=== PATIENT | male | born 1955 | race Caucasian/White ===

== ENCOUNTER 2018-03-26 14:16 | Observation (INO) ==
[2018-03-26 14:58] LABS: Baso % (Auto) 0.5 % (0.0-2.0); Eos % (Auto) 0.4 % (0.0-4.0); Hematocrit 46.2 % (39.0-51.0); Hemoglobin 15.5 gm/dL (13.0-17.0); Lymph # (Auto) 1.2 th/mm3 (1.0-4.8); Lymph % (Auto) 13.1 % (9.0-44.0); Mean Corpuscular HGB Conc 33.6 % (32.0-36.0); Mean Corpuscular Hemoglobin 30.7 pg (27.0-34.0); Mean Corpuscular Volume 91.4 fL (80.0-100.0); Mean Platelet Volume 9.4 fL (7.0-11.0); Mono # (Auto) 0.7 th/mm3 (0.0-0.9); Mono % (Auto) 8.3 % (0.0-8.0); Neut % (Auto) 77.7 % (16.0-70.0); Platelet Count 150 th/mm3 (150-450); Red Blood Count 5.05 mil/mm3 (4.50-5.90); Red Cell Distribution Width 13.3 % (11.6-17.2); White Blood Count 8.9 th/mm3 (4.0-11.0)
--- NOTE | 2018-03-26 15:13 | XR ---
EXAM DATE: 03/26/2018 3:09 PM EST AGE/SEX: 62 years / Male INDICATIONS: . Nausea and dizziness. CLINICAL DATA: This is the patient's initial encounter. Patient reports that signs and symptoms have been present for 1 day and indicates a pain score of 0/10. MEDICAL/SURGICAL HISTORY: Hypertension. None. COMPARISON: No prior exams available for comparison. FINDINGS: PA and lateral views of the chest demonstrate the lungs to be symmetrically aerated without evidence of mass, infiltrate or effusion. The cardiomediastinal contours are unremarkable. Osseous structures are intact. CONCLUSION: Negative examination. Electronically signed by: Ji Garduno MD 03/26/2018 3:12 PM EST
[2018-03-26 15:14] LABS: Chloride 102 meq/L (98-107); Potassium 3.7 meq/L (3.5-5.1); Sodium 138 meq/L (136-145)
[2018-03-26 15:16] LABS: Calcium 8.4 mg/dL (8.5-10.1)
[2018-03-26 15:17] LABS: Anion Gap 7 meq/L (5-15); Blood Urea Nitrogen 13 mg/dL (7-18); Carbon Dioxide 28.9 meq/L (21.0-32.0); Glucose,Random 122 mg/dL (74-106)
[2018-03-26 15:20] LABS: Glomerular Filtration Rate 85 mL/min (>89)
--- NOTE | 2018-03-26 15:37 | ED ---
HPI General Chief Complaint: Dizziness Stated Complaint: chest pain Time Seen by Provider: 03/26/18 14:25 Source: patient and family Limitations: no limitations History of Present Illness HPI Narrative: Patient is a 62-year-old male, past medical history significant for hyperlipidemia and hypertension who presents with complaint of near syncope. He states that he was at home exerting himself when he became diaphoretic, lightheaded and had a "weird" feeling in his lower chest/upper abdomen associated with nausea. He laid down to rest and after several minutes felt back to normal. He did have shortness of breath at that time. This is never happened before. He denies any chest pain, abdominal pain at this time. He denies any fever, chills. He denies any cough or congestion. No leg swelling nor mobilization. complaint: Reports lightheadedness and near syncope Onset (ago): hour(s) Timing: sudden onset Description: Reports lightheadedness and near-syncope History of similar episodes: No History of trauma: No Severity: severe Relieving factors: rest Exacerbating factors: exertion Associated symptoms: Reports diaphoresis Related Data Home Medications Medication Instructions Recorded Confirmed amlodipine 5 mg PO DAILY 03/26/18 03/26/18 lovastatin 20 mg PO DAILY 03/26/18 03/26/18 Allergies Allergy/AdvReac Type Severity Reaction Status Date / Time No Known Allergies Allergy Verified 03/26/18 14:20 Review of Systems ROS: all other systems reviewed are negative [facility] Medical History Medical History High cholesterol (Acute) Hypertension (Acute) Surgical History Surgical History No history of previous surgery (Acute) Social History Social History Substance History: No History of Abuse Second Hand Smoke Exposure: No Smoking Status: Former smoker Tobacco Type: Cigarettes How Often Do You Have a Drink Containing Alcohol: 2 to 4 times a month Recent Travel in [facility] within the Last 8 Weeks: Yes Recent Out of Country Travel within the Last 8 Weeks: No Immunization History Tetanus Immunization: Unsure Exam Narrative Exam Narrative: GENERAL: Well-appearing male in no acute distress SKIN: Focused skin assessment warm/dry. HEAD: Atraumatic. Normocephalic. EYES: Pupils equal and round. No scleral icterus. No injection or drainage. ENT: No nasal bleeding or discharge. Mucous membranes pink and moist. NECK: Trachea midline. No JVD. CARDIOVASCULAR: Regular rate and rhythm. No murmur appreciated. Intact and equal peripheral pulses. RESPIRATORY: No accessory muscle use. Clear to auscultation. Breath sounds equal bilaterally. GASTROINTESTINAL: Abdomen soft, non-tender, nondistended. Hepatic and splenic margins not palpable. MUSCULOSKELETAL: No obvious deformities. No clubbing. No cyanosis. No edema. NEUROLOGICAL: Awake and alert. No obvious cranial nerve deficits. Motor within normal limits. Normal sensation. No dysmetria nor pass pointing. Normal visual field. Normal speech. PSYCHIATRIC: Appropriate mood and affect; insight and judgment normal. Course Initial Documented Vital Signs Temperature 97.7 F 03/26/18 14:18 Pulse Rate 60 03/26/18 14:18 Respiratory Rate 18 03/26/18 14:18 Blood Pressure 165/87 H 03/26/18 14:18 Pulse Oximetry 100 03/26/18 14:18 Last Documented Vital Signs Temperature 97.7 F 03/26/18 14:18 Pulse Rate 77 03/26/18 16:35 Respiratory Rate 16 03/26/18 16:00 Blood Pressure 148/86 H 03/26/18 16:00 Pulse Oximetry 97 03/26/18 16:00 Medical Decision Making [facility] Narrative Medical decision making narrative: Patient is a 62-year-old male who presents with complaint of vague lower chest/upper abdominal pain with diaphoresis, nausea, lightheadedness while exerting himself today. This does resolve with rest. He has not had any further episodes while in the emergency department. EKG was without acute ischemic changes. Chest x-ray was unremarkable and initial troponin was also normal. He was given aspirin. He has been admitted to Dr. Mendez, hospitalist semiconductor technician, for further evaluation and management. Medical Screen Exam Complete: Yes Emergency Medical Condition: Yes Differential Diagnosis Differential Diagnosis: Differential diagnosis includes but is not limited to acute coronary syndrome, pneumonia, pneumothorax, dysrhythmia. Medical Records Medical records reviewed: Yes I reviewed the patient's medical records. Lab Data Lab results reviewed: Yes I reviewed the patient's lab results. Result diagrams: 03/26/18 14:20 03/26/18 14:20 Lab Results 03/26/18 03/26/18 Range/Units 14:20 14:20 CBC w Diff Auto diff final WBC 8.9 (4.0-11.0) th/mm3 RBC 5.05 (4.50-5.90) mil/mm3 Hgb 15.5 (13.0-17.0) gm/dL Hct 46.2 (39.0-51.0) % MCV 91.4 (80.0-100.0) fL MCH 30.7 (27.0-34.0) pg MCHC 33.6 (32.0-36.0) % RDW 13.3 (11.6-17.2) % Plt Count 150 (150-450) th/mm3 MPV 9.4 (7.0-11.0) fL Neut % (Auto) 77.7 H (16.0-70.0) % Lymph % (Auto) 13.1 (9.0-44.0) % [facility] % (Auto) 8.3 H (0.0-8.0) % Eos % (Auto) 0.4 (0.0-4.0) % Baso % (Auto) 0.5 (0.0-2.0) % Neut # (Auto) 7.0 (1.8-7.7) th/mm3 Lymph # (Auto) 1.2 (1.0-4.8) th/mm3 [facility] # (Auto) 0.7 (0.0-0.9) th/mm3 Eos # (Auto) 0.0 (0.0-0.4) th/mm3 Baso # (Auto) 0.0 (0.0-0.2) th/mm3 WBC Differential . Differential Comment . Sodium 138 (136-145) meq/L Potassium 3.7 (3.5-5.1) meq/L Chloride 102 (98-107) meq/L Carbon Dioxide 28.9 (21.0-32.0) meq/L Anion Gap 7 (5-15) meq/L BUN 13 (7-18) mg/dL Creatinine 0.91 (0.60-1.30) mg/dL Estimated GFR 85 L (>89) mL/min Random Glucose 122 H (74-106) mg/dL Calcium 8.4 L (8.5-10.1) mg/dL Troponin I Less than 0.02 L (0.02-0.05) ng/mL Imaging Data Attestation: I personally reviewed and interpreted this imaging study as follows : Radiologist's impression: Chest X-Ray 03/26/18 14:36 CONCLUSION: Negative examination. ECG Data EKG Prior to Arrival: No Attestation: I personally reviewed and interpreted this ECG as follows: (Sinus rhythm at a rate of [address] or T wave changes. There is intraventricular conduction delay.) Discharge Plan Discharge Disposition Patient Disposition: 30 Still Patient Discharge Condition Condition: Stable Discharge Details Diagnosis: Chest pain, rule out acute myocardial infarction, Near syncope Physicians Team ED Provider: Ana Paula Jett Primary Care Provider: KELLIE, Attending Provider: Paddy Mendez Discharge Interventions Interventions: ED Discharge Assessment Last Done: 03/26/18 16:22 Status ED Status: Left Department Discharge Information Discharge Date/Time: 03/26/18 16:10
--- NOTE | 2018-03-26 16:18 | P.HP ---
History of Present Illness Primary Care Physician: [facility] Chief Complaint: Near syncope History of Present Illness: This is a 62-year-old male patient with a known medical history of hyperlipidemia and hypertension who presented to the ED status post near syncopal episode. Patient states that he went shopping this afternoon, was unpacking his TV and exerting himself and he became diaphoretic and lightheaded , states that he felt a fluttering sensation in his upper chest with associated nausea. He denies ever having this type of sensation before. He denies any actual chest pain. Denies any recent illness including fever, chills, cough, headache, abdominal pain, vomiting, diarrhea or dysuria. Patient denies any loss of consciousness or hitting his head. He states that he laid down to rest after the sensation and symptoms did resolve after a while with rest. Patient does admit to having a head cold over the last week, denies any over-the- counter medications including decongestants, states he has been using honey and lemon which has relieved some of his head cold symptoms. His appetite has been good, denies any possibility of dehydration. 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 He does admit to undergoing cardiac stress test in June of this year through his PCP and an echo was also done at that time with results unremarkable per patient report. Denies any changes to his medications. Does admit to taking his medication this morning. Patient and his moved here from [place] is here half the year and stress test echocardiogram was done in [place]. Will attempt to obtain records. Denies any known family history of cardiovascular disease. He was a former smoker, quit many years ago. CBC and BMP on presentation unremarkable. Chest x-ray negative. EKGs unremarkable without any ST changes. All symptoms have improved on assessment this evening. Review of Systems All other systems reviewed negative except as stated in HPI PMFSH - History History Provided By: Patient - Medical History Medical History: Medical History (Last Reviewed 03/26/18 @ 16:14 by Temitope Ruiz) High cholesterol Hypertension - Surgical History Surgical History: Surgical History (Last Reviewed 03/26/18 @ 16:14 by Temitope Ruiz) No history of previous surgery - Family History Family History: Family History (Last Updated 03/26/18 @ 18:08 by Temitope Ruiz) Other Family history in first degree relatives is unremarkable - Social History I have reviewed the patient's Social History: Yes - Tobacco History Smoking Status: Former smoker - Alcohol History How Often Do You Have a Drink Containing Alcohol: 2 to 4 times a month - Substance Use History Substance History: No History of Abuse - Travel History Recent Travel Out of the Country Within the Last 8 Weeks: No - Immunization History Tetanus Immunization: Unsure Medications and Allergies Active Medications: Active Medications Amlodipine Besylate (Norvasc) 5 mg PO DAILY VENESSA Aspirin (Aspirin Chew) 81 mg PO DAILY VENESSA Nitroglycerin (Nitrostat Sl) 0.4 mg SL Q5M PRN PRN Reason: CHEST PAIN Pravastatin Sodium (Pravachol) 20 mg PO DAILY VENESSA Sodium Chloride (Ns Flush) 2 ml IV.FLUSH PRN PRN PRN Reason: FLUSH AFTER USING IV ACCESS Sodium Chloride (Ns Flush) 2 ml IV.FLUSH BID VENESSA Sodium Chloride (Ns Flush) 2 ml IV.FLUSH PRN PRN PRN Reason: FLUSH AFTER USING IV ACCESS Allergies Allergy/AdvReac Type Severity Reaction Status Date / Time No Known Allergies Allergy Verified 03/26/18 14:20 Home Medications Medication Instructions Recorded Confirmed Type amlodipine 5 mg PO DAILY 03/26/18 03/26/18 History lovastatin 20 mg PO DAILY 03/26/18 03/26/18 History Exam Vital signs: Vital Signs 03/26/18 14:18 03/26/18 14:30 03/26/18 14:36 Temperature 97.7 F Pulse Rate 60 90 90 Respiratory Rate 18 16 Blood Pressure 165/87 H 165/87 H Pulse Oximetry 100 94 L Intake & Output 03/25/18 03/26/18 03/26/18 18:59 06:59 18:59 Weight 97.4 kg Narrative: GENERAL: Well-developed, well-nourished patient in [facility]. SKIN: Warm and dry. No rash. HEAD: Normocephalic. Atraumatic. EYES: Pupils equal and round. No scleral icterus. No injection or drainage. ENT: No nasal bleeding or discharge. Mucous membranes pink and moist. NECK: Supple. Trachea midline. CARDIOVASCULAR: Regular rate and rhythm. S1, S2 noted. No murmur appreciated. No chest pain to palpation. RESPIRATORY: No accessory muscle use. Clear to auscultation. Breath sounds equal bilaterally. GASTROINTESTINAL: Abdomen soft, non-tender, nondistended. Normoactive bowel sounds x4. MUSCULOSKELETAL: No obvious deformities. Extremities without clubbing, cyanosis , or edema. NEUROLOGICAL: Awake and alert. No obvious cranial nerve deficits. Motor grossly within normal limits. 5/5 muscle strength in bilateral upper and lower extremities. Normal speech. PSYCHIATRIC: Appropriate mood and affect; insight and judgment normal. Results - Labs CBC & Chem 7: 03/26/18 14:20 03/26/18 14:20 Labs: Laboratory Results - last 24 hr 03/26/18 03/26/18 14:20 14:20 CBC w Diff Auto diff final WBC 8.9 RBC 5.05 Hgb 15.5 Hct 46.2 MCV 91.4 MCH 30.7 MCHC 33.6 RDW 13.3 Plt Count 150 MPV 9.4 Neut % (Auto) 77.7 H Lymph % (Auto) 13.1 [facility] % (Auto) 8.3 H Eos % (Auto) 0.4 Baso % (Auto) 0.5 Neut # (Auto) 7.0 Lymph # (Auto) 1.2 [place] # (Auto) 0.7 Eos # (Auto) 0.0 Baso # (Auto) 0.0 WBC Differential . Differential Comment . Sodium 138 Potassium 3.7 Chloride 102 Carbon Dioxide 28.9 Anion Gap 7 BUN 13 Creatinine 0.91 Estimated GFR 85 L Random Glucose 122 H Calcium 8.4 L Troponin I Less than 0.02 L - Imaging Impressions Chest X-Ray 03/26/18 14:36 CONCLUSION: Negative examination. Caprini VTE Risk Assessment Caprini VTE Risk Assessment: Moderate/High Risk (score >= 2) Caprini Risk Assessment Model: Point Value = 1 Point Value = 2 Point Value = 3 Point Value = 5 Age 41-60 Minor surgery BMI > 25 kg/m2 Swollen legs Varicose veins or History of unexplained or recurrent spontaneous Oral contraceptives or hormone replacement Sepsis (< 1 month) Serious lung disease, including pneumonia (< 1 month) Abnormal pulmonary function Acute myocardial infarction Congestive heart failure (< 1 month) History of inflammatory bowel disease Medical patient at bed rest Age 61-74 Arthroscopic surgery Major open surgery (> 45 min) Laparoscopic surgery (> 45 min) Malignancy Confined to bed (> 72 hours) Immobilizing plaster cast Central venous access Age >= 75 History of VTE Family history of VTE Factor V Leiden Prothrombin [id number] Lupus anticoagulant Anticardiolipin antibodies Elevated serum homocysteine Heparin-induced thrombocytopenia Other congenital or acquired thrombophilia Stroke (< 1 month) Elective arthroplasty Hip, pelvis, or leg fracture Acute spinal cord injury (< 1 month) Prophylaxis Regimen: Total Risk Factor Score Risk Level Prophylaxis Regimen 0-1 Low Early ambulation 2 Moderate Order ONE of the following: *Sequential Compression Device (SCD) *Heparin 5000 units SQ BID 3-4 Higher Order ONE of the following medications: *Heparin 5000 units SQ TID *Enoxaparin/Lovenox 40 mg SQ daily (WT < 150 kg, CrCl > 30 mL/min) *Enoxaparin/Lovenox 30 mg SQ daily (WT < 150 kg, CrCl > 10-29 mL/min) *Enoxaparin/Lovenox 30 mg SQ BID (WT < 150 kg, CrCl > 30 mL/min) AND/OR *Sequential Compression Device (SCD) 5 or more Highest Order ONE of the following medications: *Heparin 5000 units SQ TID (Preferred with Epidurals) *Enoxaparin/Lovenox 40 mg SQ daily (WT < 150 kg, CrCl > 30 mL/min) *Enoxaparin/Lovenox 30 mg SQ daily (WT < 150 kg, CrCl > 10-29 mL/min) *Enoxaparin/Lovenox 30 mg SQ BID (WT < 150 kg, CrCl > 30 mL/min) AND *Sequential Compression Device (SCD) Assessment and Plan - Plan This is a 62-year-old patient with a known medical history of hypertension and hyperlipidemia who presented to the ED with: Near syncopal episode at home Rule out TIA/CVA/ACS/orthostatic hypotension/dehydration -Patient complaint of diaphoretic episode, lightheadedness and fluttering sensation in chest. -All symptoms have resolved at time of assessment. -Will obtain records from recent cardiac stress test and ECHO of this year from in [place]. Follow. -Obtain head CT for possible neurological cause of symptoms, rule out TIA/CVA. -Add ultrasound of carotids. Follow. -Check orthostatic BPs. -CBC and BMP reviewed and essentially unremarkable. Will add TSH and hemoglobin a1c level. -CXR reviewed, showing no acute cardiopulmonary disease. -Aspirin given in ED. Will continue. -Nitroglycerin for pain as needed, patient denies ever having any chest pain. -Serial EKGs and serial troponins have been ordered for ruling out ACS purposes. Initial troponin flat. Continue to follow trend. -EKG reviewed showing controlled heart rate with sinus arrhythmia, no ST changes noted to indicate ischemia. -Continue to monitor closely on telemetry, monitor for any arrhythmias. -Ensure hydration, continue IVF. Encourage PO intake. -Supportive care. Hypertension, chronic. Stable. -Continue home amlodipine. -Monitor BP trends. Hyperlipidemia, chronic. Stable. -Continue home statin. DVT Prophylaxis: SCDs.
[2018-03-26 18:14] LABS: Creatine Kinase 217 U/L (39-308)
[2018-03-26] MEDS ORDERED: Sod Chloride 0.9% Inj 1,000 ML IV.CONT SCH (18:30)
[2018-03-26 20:48] LABS: Creatine Kinase 190 U/L (39-308)
--- NOTE | 2018-03-26 22:35 | CT ---
EXAM DATE: 03/26/2018 10:29 PM EST AGE/SEX: 62 years / Male INDICATIONS: Syncope. CLINICAL DATA: This is the patient's initial encounter. Patient reports that signs and symptoms have been present for 1 day and indicates a pain score of 0/10. MEDICAL/SURGICAL HISTORY: Hypercholesterolemia. Hypertension. None. RADIATION DOSE: 59.64 CTDI (mGy) COMPARISON: No prior exams available for comparison. TECHNIQUE: CT of the head without contrast. Using automated exposure control and adjustment of the mA and/or kV according to patient size, radiation dose was kept as low as reasonably achievable to ob tain optimal diagnostic quality images. DICOM format image data is available electronically for revi ew and comparison. FINDINGS: Cerebrum: The ventricles are normal for age. No evidence of midline shift, mass lesion, hemorrhage or acute infarction. No extraaxial fluid collections are seen. Posterior Fossa: The cerebellum and brainstem are intact. The 4th ventricle is midline. The cerebe llopontine angle is unremarkable. Extracranial: The visualized portion of the orbits is intact. Skull: The calvaria is intact. No evidence of skull fracture. CONCLUSION: 1. Negative CT Head non contrast. . Electronically signed by: Orlando Young MD 03/26/2018 10:34 PM EST
[2018-03-27 05:15] LABS: Baso % (Auto) 0.6 % (0.0-2.0); Eos % (Auto) 0.7 % (0.0-4.0); Hematocrit 45.6 % (39.0-51.0); Hemoglobin 15.1 gm/dL (13.0-17.0); Lymph # (Auto) 1.3 th/mm3 (1.0-4.8); Lymph % (Auto) 28.4 % (9.0-44.0); Mean Corpuscular HGB Conc 33.2 % (32.0-36.0); Mean Corpuscular Hemoglobin 30.5 pg (27.0-34.0); Mean Corpuscular Volume 92.1 fL (80.0-100.0); Mono # (Auto) 0.7 th/mm3 (0.0-0.9); Neut # (Auto) 2.5 th/mm3 (1.8-7.7); Neut % (Auto) 55.3 % (16.0-70.0); Platelet Count 160 th/mm3 (150-450); Red Blood Count 4.95 mil/mm3 (4.50-5.90); Red Cell Distribution Width 13.1 % (11.6-17.2); White Blood Count 4.5 th/mm3 (4.0-11.0)
[2018-03-27 05:20] LABS: Chloride 104 meq/L (98-107); Potassium 3.9 meq/L (3.5-5.1); Sodium 139 meq/L (136-145)
[2018-03-27 05:24] LABS: Albumin 3.8 g/dL (3.4-5.0); Anion Gap 8 meq/L (5-15); Calcium 8.6 mg/dL (8.5-10.1); Carbon Dioxide 27.1 meq/L (21.0-32.0); Glucose,Random 92 mg/dL (74-106)
[2018-03-27 05:25] LABS: Blood Urea Nitrogen 11 mg/dL (7-18)
[2018-03-27 05:27] LABS: Alanine Aminotransferase 47 U/L (12-78); Aspartate Aminotransferase 19 U/L (15-37)
[2018-03-27 05:28] LABS: Glomerular Filtration Rate 87 mL/min (>89)
[2018-03-27 05:29] LABS: Total Protein 7.4 g/dL (6.4-8.2)
[2018-03-27 05:30] LABS: Alkaline Phosphatase 55 U/L (45-117)
[2018-03-27] MEDS: amLODIPine 5 MG Tablet PO SCH ×2 (07:33→08:10)
[2018-03-27 08:07] VITALS: BP 131/80; RESP 16; TEMP 97.8; O2SAT 96
[2018-03-27 08:16] VITALS: PULSE 68
--- NOTE | 2018-03-27 08:25 | US ---
EXAM DATE: 03/27/2018 8:20 AM EST AGE/SEX: 62 years / Male INDICATIONS: Syncope. CLINICAL DATA: This is the patient's initial encounter. Patient reports that signs and symptoms have been present for 1 day and indicates a pain score of 0/10. MEDICAL/SURGICAL HISTORY: Hypercholesterolemia. Hypertension. None. COMPARISON: No prior exams available for comparison. VELOCITY PARAMETERS: ICA/CCA Ratio: Right 0.8 , Left 0.9 ICA: Right 75 cm/sec, Left 87 cm/sec CCA: Right 91 cm/sec, Left 95 cm/sec ECA: Right 81 cm/sec, Left 100 cm/sec Vertebral: Right 45 cm/sec antegrade, Left 54 cm/sec antegrade FINDINGS: Right Carotid: Mild arteriosclerotic plaque is visualized.The waveforms are within normal limits. Left Carotid: Mild arteriosclerotic plaque is visualized. The waveforms are within normal limits. Other: None. CONCLUSION: 1. Right Internal Carotid Artery: Minimal atherosclerotic plaquing. No hemodynamically significant l esion identified. 2. Left Internal Carotid Artery: Minimal atherosclerotic plaquing. No hemodynamically significant le lalito identified. Electronically signed by: Ji Garduno MD 03/27/2018 8:24 AM EST
--- NOTE | 2018-03-27 09:41 | P.PNIM ---
Subjective Interval history: Follow up near syncope at home. Patient seen and examined, lying in bed comfortably in [facility]. No acute events overnight. Doing well. All labs negative. VSS. Awaiting records from MD in [facility]. Patient states that ECHO and stress test this year was normal. All symptoms have resolved. Will likely send home this am if unable to obtain records and have him follow up with his PCP, returns home to [facility] on Sunday. is at bedside as well and updated. Physical Exam Vital signs: Vital Signs 03/26/18 14:18 03/26/18 14:30 03/26/18 14:36 Temperature 97.7 F Pulse Rate 60 90 90 Respiratory Rate 18 16 Blood Pressure 165/87 H 165/87 H Pulse Oximetry 100 94 L 03/26/18 15:30 03/26/18 16:00 03/26/18 16:35 Temperature Pulse Rate 74 70 77 Respiratory Rate 16 16 Blood Pressure 146/87 H 148/86 H Pulse Oximetry 97 97 03/26/18 19:22 03/26/18 20:00 03/27/18 00:00 Temperature 97.4 F L 97.5 F L Pulse Rate 76 69 66 Respiratory Rate 17 20 Blood Pressure 121/73 121/74 Pulse Oximetry 98 98 03/27/18 00:31 03/27/18 00:35 03/27/18 02:10 Temperature Pulse Rate 72 Respiratory Rate 18 18 Blood Pressure Pulse Oximetry 03/27/18 04:00 03/27/18 04:54 03/27/18 08:00 Temperature 98.5 F 97.8 F Pulse Rate 78 76 68 Respiratory Rate 20 16 Blood Pressure 128/81 131/80 Pulse Oximetry 97 96 Intake & Output 03/26/18 03/27/18 03/27/18 18:59 06:59 18:59 Intake Total 480 / 480 0 / 0 Balance 480 / 480 0 / 0 Weight 94.7 kg 94.8 kg Intake: Oral 480 / 480 0 / 0 Other: # Voids 2 3 Date of Last Bowel Movement 03/26/18 03/26/18 # Bowel Movements 0 1 Weight On Admission 94.7 kg Narrative: GENERAL: Well-developed, well-nourished patient in [facility]. SKIN: Warm and dry. No rash. HEAD: Normocephalic. Atraumatic. EYES: Pupils equal and round. No scleral icterus. No injection or drainage. ENT: No nasal bleeding or discharge. Mucous membranes pink and moist. NECK: Supple. Trachea midline. CARDIOVASCULAR: Regular rate and rhythm. S1, S2 noted. No murmur appreciated. No chest pain to palpation. RESPIRATORY: No accessory muscle use. Clear to auscultation. Breath sounds equal bilaterally. GASTROINTESTINAL: Abdomen soft, non-tender, nondistended. Normoactive bowel sounds x4. MUSCULOSKELETAL: No obvious deformities. Extremities without clubbing, cyanosis , or edema. NEUROLOGICAL: Awake and alert. No obvious cranial nerve deficits. Motor grossly within normal limits. 5/5 muscle strength in bilateral upper and lower extremities. Normal speech. PSYCHIATRIC: Appropriate mood and affect; insight and judgment normal. Results - Labs CBC & Chem 7: 03/27/18 04:40 03/27/18 04:40 Laboratory Results - last 24 hr 03/26/18 03/26/18 03/26/18 14:20 14:20 17:23 CBC w Diff Auto diff final WBC 8.9 RBC 5.05 Hgb 15.5 Hct 46.2 MCV 91.4 MCH 30.7 MCHC 33.6 RDW 13.3 Plt Count 150 MPV 9.4 Neut % (Auto) 77.7 H Lymph % (Auto) 13.1 [place] % (Auto) 8.3 H Eos % (Auto) 0.4 Baso % (Auto) 0.5 Neut # (Auto) 7.0 Lymph # (Auto) 1.2 [place] # (Auto) 0.7 Eos # (Auto) 0.0 Baso # (Auto) 0.0 WBC Differential . Differential Comment . Sodium 138 Potassium 3.7 Chloride 102 Carbon Dioxide 28.9 Anion Gap 7 BUN 13 Creatinine 0.91 Estimated GFR 85 L Random Glucose 122 H Calcium 8.4 L Total Bilirubin AST ALT Alkaline Phosphatase Total Creatine Kinase 217 Troponin I Less than 0.02 L Less than 0.02 L Total Protein Albumin TSH 03/26/18 03/26/18 03/27/18 17:23 20:26 04:40 CBC w Diff Auto diff final WBC 4.5 RBC 4.95 Hgb 15.1 Hct 45.6 MCV 92.1 MCH 30.5 MCHC 33.2 RDW 13.1 Plt Count 160 MPV 9.0 Neut % (Auto) 55.3 Lymph % (Auto) 28.4 [place] % (Auto) 15.0 H Eos % (Auto) 0.7 Baso % (Auto) 0.6 Neut # (Auto) 2.5 Lymph # (Auto) 1.3 [place] # (Auto) 0.7 Eos # (Auto) 0.0 Baso # (Auto) 0.0 WBC Differential . Differential Comment . Sodium Potassium Chloride Carbon Dioxide Anion Gap BUN Creatinine Estimated GFR Random Glucose Calcium Total Bilirubin AST ALT Alkaline Phosphatase Total Creatine Kinase 190 Troponin I Less than 0.02 L Total Protein Albumin TSH 0.975 03/27/18 04:40 CBC w Diff WBC RBC Hgb Hct MCV MCH MCHC RDW Plt Count MPV Neut % (Auto) Lymph % (Auto) [place] % (Auto) Eos % (Auto) Baso % (Auto) Neut # (Auto) Lymph # (Auto) [place] # (Auto) Eos # (Auto) Baso # (Auto) WBC Differential Differential Comment Sodium 139 Potassium 3.9 Chloride 104 Carbon Dioxide 27.1 Anion Gap 8 BUN 11 Creatinine 0.89 Estimated GFR 87 L Random Glucose 92 Calcium 8.6 Total Bilirubin 0.8 AST 19 ALT 47 Alkaline Phosphatase 55 Total Creatine Kinase Troponin I Total Protein 7.4 Albumin 3.8 TSH - Imaging Impressions Head CT 03/26/18 00:00 CONCLUSION: 1. Negative CT Head non contrast. . Chest X-Ray 03/26/18 14:36 CONCLUSION: Negative examination. Carotid Doppler Study 03/27/18 00:00 CONCLUSION: 1. Right Internal Carotid Artery: Minimal atherosclerotic plaquing. No hemodynamically significant lesion identified. 2. Left Internal Carotid Artery: Minimal atherosclerotic plaquing. No hemodynamically significant lesion identified. Assessment and Plan - Plan This is a 62-year-old patient with a known medical history of hypertension and hyperlipidemia who presented to the ED with: Near syncopal episode at home Rule out TIA/CVA/ACS/orthostatic hypotension/dehydration -Patient complaint of diaphoretic episode, lightheadedness and fluttering sensation in chest. -All symptoms have resolved at time of assessment. -Will obtain records from recent cardiac stress test and ECHO of this year from in [place]. Still waiting on records. -Head CT negative. -US carotids negative. -Orthostatic BPs negative. -CBC and BMP reviewed and essentially unremarkable. TSH negative. -CXR reviewed, showing no acute cardiopulmonary disease. -Aspirin given in ED. Will continue. -Nitroglycerin for pain as needed, patient denies ever having any chest pain. -Serial EKGs and serial troponins have been ordered for ruling out ACS purposes. Trend flat. -EKG reviewed showing controlled heart rate with sinus arrhythmia, no ST changes noted to indicate ischemia. -Continue to monitor closely on telemetry, monitor for any arrhythmias. None overnight. -Encourage PO intake. Hydrated overnight with IVF. Will DC. -Supportive care. Hypertension, chronic. Stable. -Continue home amlodipine. -Monitor BP trends. Hyperlipidemia, chronic. Stable. -Continue home statin. DVT Prophylaxis: SCDs. Discharge Planning: Will likely DC home if unable to obtain records from MD in [facility]. Will have him follow up with PCP. Patient is stable now and all symptoms resolved.
--- NOTE | 2018-03-27 10:11 | ECG ---
Date Performed: 03/26/2018 Time Performed: 20:23:35 PTAGE: 62 years EKG: Sinus rhythm MODERATE INTRAVENTRICULAR CONDUCTION DELAY BORDERLINE ECG PREVIOUS TRACING : 03/26/2018 17.27 DOCTOR: Orlando Randall Interpretating Date/Time 03/27/2018 10:11:13
--- NOTE | 2018-03-27 10:30 | ECG ---
Date Performed: 03/26/2018 Time Performed: 17:27:13 PTAGE: 62 years EKG: Sinus rhythm NORMAL ECG PREVIOUS TRACING : 03/26/2018 14.22 DOCTOR: Orlando Randall Interpretating Date/Time 03/27/2018 10:28:22
--- NOTE | 2018-03-27 12:35 | ECG ---
Date Performed: 03/26/2018 Time Performed: 14:22:22 PTAGE: 62 years EKG: Sinus rhythm WITH SINUS ARRHYTHMIA MODERATE INTRAVENTRICULAR CONDUCTION DELAY BORDERLINE ECG INTERPRETATION BASED ON A DEFAULT AGE OF 41 YEARS NO PREVIOUS TRACING DOCTOR: Orlando Randall Interpretating Date/Time 03/27/2018 12:34:25
[2018-03-27 15:19] LABS: Hemoglobin A1c 5.7 % (4.3-6.0)
== END 2018-03-27 10:31 | disposition home or self-care (01) ==
LOC: PHED 14:16 → PH3 14:16
PROVIDERS: ADMIT Internal Medicine; ATTEND Internal Medicine